=== PATIENT | male | born 1950 | race Caucasian/White ===

== ENCOUNTER 2019-04-08 07:25 | Day surgery (SDC) | payer MEDICARE, BC ==
--- NOTE | 2019-03-31 12:54 | HP ---
PREOPERATIVE HISTORY AND PHYSICAL: DATE OF ADMISSION/SURGERY: 04/08/19 DATE OF OFFICE VISIT/ENCOUNTER: 03/24/19 ATTENDING SURGEON: Zoila Ledesma MD * (DICTATED BY SUHAIL PRAJAPATI) PROCEDURE: Right hand Dupuytren's excision. HISTORY OF PRESENT ILLNESS: This is a 68-year-old male who complains of a Dupuytren's contracture in both hands, but the right one is bothering him worse than the left. He has had treatment in the past with what sounds like Xiaflex injection. It worked well for the left thumb, but not the right thumb. He has had the contractures present for over 20 years and he has pain in both hands. He has trouble using the right hand more than the left as he is right-handed. He would like to have more definitive treatment for this contracture. He denies any associated numbness or tingling or any specific injury. He has consented to proceed with surgical intervention. PAST MEDICAL HISTORY: 1. COPD. 2. History of hepatitis A. 3. Arthritis. PAST SURGICAL HISTORY: 1. Right wrist fusion. 2. Appendectomy. 3. Cholecystectomy. 4. Splenectomy at age 27. CURRENT MEDICATIONS: None. ALLERGIES: No known drug allergies. FAMILY MEDICAL HISTORY: Noncontributory. SOCIAL HISTORY: The patient is retired. He is a current smoker. He smokes approximately 30 cigarettes a day, has done so for the past 45 years. He denies recreational drug use. He drinks alcohol on occasion. REVIEW OF SYSTEMS: Negative for general, cephalic, cardiovascular, respiratory , GI, , other musculoskeletal, integumentary, endocrine, neurologic, hematologic symptoms. Infectious disease, negative for MRSA, hepatitis C, HIV. PHYSICAL EXAMINATION GENERAL: Well-developed, well-nourished, 68-year-old male in no acute distress. VITAL SIGNS: Height 5 feet 8 inches, weight 140 pounds, pulse rate 55, blood pressure 160/92. HEENT: Normocephalic, atraumatic. Pupils are equal, round and reactive to light and accommodation. Extraocular movements are intact. NECK: Supple. No palpable lymph nodes. Throat is clear. PULMONARY: Lungs are clear to auscultation bilaterally. No wheezes, rales, or rhonchi. CARDIOVASCULAR: Regular rate and rhythm. S1, S2. No murmurs, rubs, or gallop. No edema. ABDOMEN: Positive bowel sounds, soft, nontender. MUSCULOSKELETAL: On exam of his bilateral hands. He has extensive Dupuytren's tissue in both hands mostly causing contractures of the thumbs, but with cords in the palms of the hands in line with all of his fingers. There is significant contracture of his fingers. He make a fist in both hands. Neurovascular function is intact. NEUROLOGIC: Alert and oriented x3. Cranial nerves II through XII are intact. Sensation is intact to light touch. IMPRESSION: Dupuytren's contracture bilateral hands. PLAN: The patient is scheduled to undergo a right hand Dupuytren's excision with Dr. Ledesma on 04/08/19. He will return to the office 10 days postop for followup and suture removal. A prescription for [place] will be sent to his pharmacy for postoperative pain management. SUHAIL PRAJAPATI [id number]/[facility] #: [id number] JON
[~2019-04-08 07:25] MED LIST: Acetaminophen TAB* 325 MG PO ONE; Buffered Lidocaine 1% SYRIN* 1 ML/SYRINGE INTRADERM ONE; Famotidine IV* 10 MG/ML 2 ML (20 mg) IV ONE; Lactated Ringers 1000 ML Bag* 1,000 ML IV SCH
[2019-04-08] MEDS ORDERED: Famotidine IV* 10 MG/ML 2 ML (20 mg) ONE (07:28)
[2019-04-08] MEDS ORDERED: Acetaminophen TAB* 325 MG ONE (07:28)
[2019-04-08] MEDS ORDERED: ceFAZolin 2 GM PREMIX in ORs 2 GM/50 ML BAG ONE (07:41)
[2019-04-08] MEDS ORDERED: Midazolam* 1 MG/ML 2 ML VIAL (2 MG) ONE ×2 (08:12→08:36)
[2019-04-08] MEDS ORDERED: fentaNYL* 50 MCG/ML 2 ML VIAL (100 MCG VIAL) ONE (08:12)
[2019-04-08] MEDS ORDERED: Lidocaine 0.5%* 50 ML SDV ONE (08:28)
[2019-04-08] MEDS ORDERED: Lidocaine 1% INJ* 10 MG/ML 30 ML SDV ONE (08:28)
[2019-04-08] MEDS ORDERED: Ketorolac INJ* 30 MG/ML 1 ML VIAL ONE (08:52)
[2019-04-08] MEDS ORDERED: Dexamethasone IV* 4 MG/ML 1 ML (4 MG) ONE (08:52)
[2019-04-08] MEDS ORDERED: Propofol* 10 MG/ML 20 ML BTL ONE (08:52)
[2019-04-08] MEDS ORDERED: fentaNYL* 50 MCG/ML 2 ML VIAL (100 MCG VIAL) IV PRN (09:06)
[2019-04-08] MEDS ORDERED: Levalbuterol 0.63MG/3ML NEB* UNIT OF USE INH PRN (09:06)
[2019-04-08] MEDS ORDERED: HYDROcodone/ACETAMIN 5-325 MG* 1 TAB PO PRN (09:06)
[2019-04-08] MEDS ORDERED: Ondansetron INJ* 2 MG/ML VIAL IV PRN (09:06)
[2019-04-08] MEDS ORDERED: DiMENhydriNATE IV* 50 MG/ML VIAL IV PUSH PRN (09:06)
[2019-04-08] MEDS ORDERED: Naloxone* 0.4 MG/ML 1 ML VIAL IV PRN (09:06)
[2019-04-08 11:02] VITALS: BP 138/84
--- NOTE | 2019-04-08 23:04 | OP ---
DATE OF OPERATION: 04/08/19 [facility] DATE OF : 50 SURGEON: Zoila Ledesma MD SECURITY SUPERVISOR: SUHAIL Baird ANESTHESIA: IV regional. PRE-OP DIAGNOSIS: Dupuytren's contracture of the right hand. POST-OP DIAGNOSIS: Dupuytren's contracture of the right hand. OPERATIVE PROCEDURE: Dupuytren's excision from the right hand. ESTIMATED BLOOD LOSS: Zero. TOURNIQUET TIME: About 45 minutes. INDICATION FOR PROCEDURE: Jaxson is a 68-year-old man who has Dupuytren's contracture of his right thumb and small finger, who presents for excision of the Dupuytren's tissue. DESCRIPTION OF PROCEDURE: The patient was brought to the operating room and was given an IV regional anesthetic with tourniquet around his right forearm. The skin of his right upper extremity was prepped and draped in the usual sterile fashion. A zigzag incision was made over the thumb Dupuytren's cord and we carefully dissected the cord away from the skin and away from the underlying neurovascular bundles. The cord was then removed in its entirety and sent for pathology. The thumb had full range of motion after the cord was excised. The wound was irrigated and the skin edges were reapproximated with 4-0 nylon suture. Next, a second incision was made in the palm of the hand in line with the ring and small fingers and again it was a zigzag incision over the Dupuytren 's cord. The cords were dissected away from the skin and away from the underlying neurovascular bundles and removed and then the fingers had excellent range of motion. The wound was copiously irrigated with saline and the skin edges were reapproximated with 4-0 nylon suture. The wounds were dressed with Xeroform, 4x4, Webril, and an Fabiano wrap. The patient tolerated the procedure well and was brought to the recovery room in good condition. [id number]/[facility] #: [id number] MTDD
== END 2019-04-08 11:04 | disposition home or self-care (01) ==
LOC: OREAST 07:25
PROVIDERS: ATTEND Orthopaedic Surgery
DX: M72.0 Palmar fascial fibromatosis [Dupuytren] (principal); J44.9 Chronic obstructive pulmonary disease, unspecified; M15.9 Polyosteoarthritis, unspecified; F17.210 Nicotine dependence, cigarettes, uncomplicated
CPT/HCPCS: 88304; A9270-GY; J0690; J1100; J1885; J2250; J2704; J3010